=== PATIENT | female | born 1990 | race African-American/Black ===

== ENCOUNTER 2017-05-29 20:05 | Outpatient (CLI) | payer OTHER ==
[2017-05-29] MEDS ORDERED: LACTATED RINGER'S 1,000 ML IV (21:30)
[2017-05-29] MEDS: LACTATED RINGER'S 1,000 ML IV (22:07)
[2017-05-29] MEDS: ACETAMINOPHEN 325 MG TAB PO (22:07)
[2017-05-29 23:53] LABS: ADD UMIC YES; UR AMORPHOUS CRYSTAL FEW /HPF (NONE SEEN); UR ASCORBIC ACID 20 mg/dL (NEGATIVE); UR BACTERIA FEW /HPF (NONE SEEN); UR BILIRUBIN (Dip) NEGATIVE (NEGATIVE); UR BLOOD (Dip) NEGATIVE (NEGATIVE); UR CALCIUM OXALATE CRYSTAL FEW /HPF (NONE SEEN); UR CLARITY SLIGHTLY CLOUDY (CLEAR); UR COLOR YELLOW (YELLOW); UR GLUCOSE (Dip) NEGATIVE (NEGATIVE); UR KETONES (Dip) 1+ mg/dL (NEGATIVE); UR LEUKOCYTE ESTERASE (Dip) 1+ Leu/ul (NEGATIVE); UR MUCUS FEW /HPF (NONE SEEN); UR NITRITE (Dip) NEGATIVE (NEGATIVE); UR RBC 4 /HPF (0-5); UR SPECIFIC GRAVITY (Dip) 1.021 (1.003-1.030); UR SQUAMOUS EPITHELIAL CELL FEW /HPF (FEW); UR TOTAL PROTEIN (Dip) NEGATIVE (NEGATIVE); UR UROBILINOGEN (Dip) 2+ mg/dL (NEGATIVE); UR WBC 7 /HPF (0-5)
== END 2017-05-30 01:07 | disposition home or self-care (01) ==
LOC: OBT 20:05 → L-D 20:07
DX: O36.8130 Decreased fetal movements, third trimester, not applicable or unspecified (principal); O26.893 Other specified pregnancy related conditions, third trimester; R51 Headache; Z3A.36 36 weeks gestation of pregnancy
CPT/HCPCS: 36415; 76818; 81001; 96360; 96361

== ENCOUNTER 2017-06-12 01:21 | Outpatient (CLI) | payer OTHER | END 2017-06-12 02:20 | disposition home or self-care (01) | LOC: OBT 01:21 → L-D 01:22 → OBT 02:20 | DX: O62.9 Abnormality of forces of labor, unspecified (principal); Z3A.37 37 weeks gestation of pregnancy | CPT/HCPCS: Z7500 ==